=== PATIENT | female | born 1980 | race Caucasian/White ===

== ENCOUNTER 2019-06-25 05:09 | Emergency (ER) | payer OTHER ==
[~2019-06-25] VITALS: Ht 167.6 cm; Wt 53.1 kg
[2019-06-25 05:22] VITALS: Ht 167.6 cm; Wt 53.1 kg
[2019-06-25 06:29] VITALS: BP 115/54
== END 2019-06-25 06:29 | disposition left against medical advice (07) ==
LOC: ED 05:09
DX: Z53.21 Procedure and treatment not carried out due to patient leaving prior to being seen by health care provider (principal)